=== PATIENT | female | born 1955 | race Caucasian/White ===

== ENCOUNTER → 2024-07-17 | Outpatient (CLI) | payer OTHER, SELFPAY ==
[2024-07-17 15:53] LABS: Ferritin 128 ng/mL (7.3-270.7); Total Iron Binding Capacity 345 mcg/dL (250-425)
[2024-07-17 16:06] LABS: Iron 73 mcg/dL (50-170); Percent Iron Saturation 21 % (20-55); Unsaturated Iron Binding 272 (225-295)
== END | disposition home or self-care (01) ==
LOC: COPL 14:23
PROVIDERS: PCP Family Medicine; Referring Provider Psychiatry & Neurology Neurology; Visit Provider Psychiatry & Neurology Neurology
DX: G25.81 Restless legs syndrome (principal)
CPT/HCPCS: 36415; 82728; 83540; 83550